=== PATIENT | female | born 1955 ===

== ENCOUNTER 2021-04-18 07:08 | Day surgery (SDC) | payer OTHER ==
[~2021-04-18 07:08] MED LIST: ENALAPRIL MALE2.5 MG; GLUMETZA500 MG; ZOCOR20 MG; ZOLOFT50 MG
[2021-04-18] MEDS ORDERED: ULTRACET PO (11:12)
== END 2021-04-18 16:50 | disposition home or self-care (01) ==
LOC: CIR.AMB 07:08
PROVIDERS: ATTEND Surgery
DX: C21.1 Malignant neoplasm of anal canal (principal); Z20.822 Contact with and (suspected) exposure to COVID-19